=== PATIENT | male | born 2000 | race Two or more races ===

== ENCOUNTER 2020-05-21 10:31 | Emergency (ER) | payer SELFPAY ==
[~2020-05-21] VITALS: Ht 167.6 cm; Wt 90.5 kg
--- NOTE | 2020-05-21 11:27 | NUR ---
PT C/O NEEDING A COVID SWAB TO GO BACK TO WORK. PT'S MOM HAS COVID. PT DENIES SYMPTOMS AT THIS TIME. VSS.
[2020-05-21 11:28] VITALS: BP 120/61
--- NOTE | 2020-05-21 11:34 | NUR ---
PT REC'VD DISCHARGE INSTRUCTIONS AND EDUCATION. PT HAD NO FURTHER QUESTIONS. PT AMBULATED TO DC AREA, STEADY GAIT.
== END 2020-05-21 11:39 | disposition home or self-care (01) ==
LOC: ED 10:50
DX: B34.9 Viral infection, unspecified (principal); Z20.828 Contact with and (suspected) exposure to other viral communicable diseases; R07.89 Other chest pain; R05 Cough; R43.8 Other disturbances of smell and taste; J02.9 Acute pharyngitis, unspecified; R09.81 Nasal congestion
CPT/HCPCS: 87635; 93005; 99284